=== PATIENT | female | born 1990 | race Caucasian/White ===

== ENCOUNTER 2018-05-07 12:27 | Outpatient (CLI) | payer MEDICAID ==
[2018-05-07 14:13] LABS: ADD UMIC YES; UR ASCORBIC ACID 40 mg/dL (NEGATIVE); UR BACTERIA FEW /HPF (NONE SEEN); UR BILIRUBIN (Dip) NEGATIVE (NEGATIVE); UR BLOOD (Dip) NEGATIVE (NEGATIVE); UR CLARITY SLIGHTLY CLOUDY (CLEAR); UR COLOR YELLOW (YELLOW); UR GLUCOSE (Dip) 1+ mg/dL (NEGATIVE); UR KETONES (Dip) TRACE mg/dL (NEGATIVE); UR LEUKOCYTE ESTERASE (Dip) 2+ Leu/ul (NEGATIVE); UR MUCUS FEW /HPF (NONE SEEN); UR NITRITE (Dip) NEGATIVE (NEGATIVE); UR RBC 4 /HPF (0-5); UR SPECIFIC GRAVITY (Dip) 1.025 (1.003-1.030); UR SQUAMOUS EPITHELIAL CELL FEW /HPF (FEW); UR TOTAL PROTEIN (Dip) 1+ mg/dl (NEGATIVE); UR UROBILINOGEN (Dip) NEGATIVE (NEGATIVE); UR WBC 51 /HPF (0-5)
== END 2018-05-07 16:35 | disposition home or self-care (01) ==
LOC: OBT 12:27 → L-D 12:27 → OBT 16:35
DX: O36.8120 Decreased fetal movements, second trimester, not applicable or unspecified (principal); Z3A.25 25 weeks gestation of pregnancy
CPT/HCPCS: 76817; 81001; 82731

== ENCOUNTER 2018-05-07 16:33 | Emergency (ER) | payer MEDICAID ==
[2018-05-07] MEDS: DEXAMETHASONE 4 MG TAB PO (18:07)
[2018-05-07] MEDS: ALBUTEROL 0.083% (NEB) 2.5 MG/3 ML AMP HHN (18:42)
== END 2018-05-07 19:46 | disposition home or self-care (01) ==
LOC: FTE 16:33
DX: J06.9 Acute upper respiratory infection, unspecified (principal)
CPT/HCPCS: 94664; 99283-25

== ENCOUNTER 2018-07-20 08:26 | Emergency (ER) | payer MEDICAID | END 2018-07-20 09:03 | disposition home or self-care (01) | LOC: FTE 08:26 | DX: L30.9 Dermatitis, unspecified (principal) | CPT/HCPCS: 99283; Z7502 ==

== ENCOUNTER 2018-08-15 05:52 | Inpatient (IN) | payer MEDICAID ==
[2018-08-15] MEDS ORDERED: OXYTOCIN 30 UNITS/LR 500 ML IV ×2 (06:00→19:00)
[2018-08-15] MEDS ORDERED: MISOPROSTOL 200 MCG TAB PR ×2 (06:00→19:00)
[2018-08-15] MEDS ORDERED: CARBOPROST 250 MCG INJ IM ×2 (06:00→19:00)
[2018-08-15] MEDS ORDERED: CEFAZOLIN 2 GM/50 ML (PMX) 50 ML IVPB (06:00)
[2018-08-15] MEDS ORDERED: METHYLERGONOVINE 0.2 MG INJ IM ×2 (06:00→19:00)
[2018-08-15] MEDS: LACTATED RINGER'S 1,000 ML IV ×3 (06:41→14:48)
[2018-08-15 06:55] LABS: ADD MAN DIFF? NO; BASOPHILS % 0.4 % (0.0-2.0); EOSINOPHILS # 0.1 10^3/ul (0.0-0.5); EOSINOPHILS % 0.9 % (0.0-7.0); HEMATOCRIT 37.6 % (37.0-47.0); HEMOGLOBIN 12.4 g/dl (12.0-16.0); LYMPHOCYTES # 2.4 10^3/ul (0.8-2.9); MEAN CORPUSCULAR VOLUME 87.9 fl (82.0-101.0); MEAN PLATELET VOLUME 10.8 fl (7.4-10.4); MONOCYTE # 0.9 10^3/ul (0.3-0.9); MONOCYTES % 9.4 % (0.0-11.0); NEUTROPHIL # 6.2 10^3/ul (1.6-7.5); NEUTROPHILS % 63.7 % (39.0-77.0); PLATELET COUNT 256 10^3/UL (140-415); RED BLOOD COUNT 4.28 10^6/ul (4.20-5.40); RED CELL DISTRIBUTION WIDTH 15.1 % (11.5-14.5)
[2018-08-15 06:55] LABS: WHITE BLOOD COUNT 9.7 10^3/ul (4.8-10.8)
[2018-08-15 07:15] LABS: INR 0.91; PARTIAL THROMBOPLASTIN TIME 25.8 Sec (23.0-35.0); PROTIME 12.4 Sec (11.9-14.9)
[2018-08-15 07:45] LABS: HEPATITIS B SURFACE ANTIGEN NEGATIVE (NEGATIVE)
[2018-08-15] MEDS ORDERED: PHENYLephrine (100 MCG/ML) 10ML SYG (07:48)
[2018-08-15] MEDS ORDERED: morphine SULFATE/PF (10 MG/10 ML) INJ (07:48)
[2018-08-15] MEDS ORDERED: ONDANSETRON 4 MG INJ (13:00)
[2018-08-15] MEDS ORDERED: TRIMETHOBENZAMIDE 100 MG/ML VIAL IM ×2 (13:30)
[2018-08-15] MEDS ORDERED: ALBUTEROL 0.083% (NEB) 2.5 MG/3 ML AMP HHN (13:30)
[2018-08-15] MEDS ORDERED: MIDAZOLAM 1 MG/ML 2 ML INJ IV (13:30)
[2018-08-15] MEDS ORDERED: IPRATROPIUM (NEB) 0.5 MG/2.5 ML AMP HHN (13:30)
[2018-08-15] MEDS ORDERED: FENTAnyl 50 MCG/ML VIAL IV ×3 (13:30)
[2018-08-15] MEDS ORDERED: MEPERIDINE 25 MG INJ IV (13:30)
[2018-08-15] MEDS ORDERED: morphine 2 MG INJ IV (13:30)
[2018-08-15] MEDS ORDERED: EPHEDrine 25 MG/5 ML SYG IV (13:30)
[2018-08-15] MEDS ORDERED: DIPHENHYDRAMINE 50 MG INJ IV ×2 (13:30)
[2018-08-15] MEDS ORDERED: LABETALOL HCL 20MG INJ IV (13:30)
[2018-08-15] MEDS ORDERED: NALOXONE (0.4 MG/ML) INJ IV (13:30)
[2018-08-15] MEDS ORDERED: NALBUPHINE HCL (10 MG/1 ML) INJ IV (13:30)
[2018-08-15] MEDS ORDERED: ONDANSETRON 4 MG INJ IV ×2 (13:30)
[2018-08-15] MEDS ORDERED: OXYCODONE/ACETAMINOPHEN (5/325) TAB PO ×2 (13:30)
[2018-08-15] MEDS ORDERED: HYDROmorphONE 1 MG/5 ML IV SYRINGE IV ×3 (13:30)
[2018-08-15] MEDS ORDERED: hydrALAzine 20 MG INJ IV (13:30)
[2018-08-15] MEDS: KETOROLAC 30 MG INJ IV (15:33)
[2018-08-15] MEDS: CEFTRIAXONE 1 GM/50 ML (PMX) 50 ML IVPB (16:13)
[2018-08-15] MEDS: SOD CHLORIDE 0.9% 1,000 ML IV (16:34)
[2018-08-15 17:25] LABS: RAPID PLASMA REAGIN NONREACTIVE (NR)
[2018-08-15] MEDS: DEXTROSE 5%-LR 1,000 ML IV (18:44)
[2018-08-15] MEDS ORDERED: METHYLERGONOVINE 0.2 MG TAB PO (19:00)
[2018-08-15] MEDS ORDERED: LANOLIN HPA 1 PKT TOP (19:00)
[2018-08-15] MEDS: OXYTOCIN 30 UNITS/LR 500 ML IV (21:17)
[2018-08-15] MEDS: SENNA/DOCUSATE NA (8.6MG/50MG) TAB PO (21:22)
[2018-08-15] MEDS: IBUPROFEN 800 MG TAB PO (21:59)
[2018-08-16] MEDS: SOD CHLORIDE 0.9% 1,000 ML IV ×3 (01:32→16:30)
[2018-08-16] MEDS: DEXTROSE 5%-LR 1,000 ML IV ×3 (02:44→18:44)
[2018-08-16] MEDS: IBUPROFEN 800 MG TAB PO ×3 (06:25→21:49)
[2018-08-16] MEDS: LACTATED RINGER'S 1,000 ML IV ×3 (06:29→22:00)
[2018-08-16 08:02] LABS: ADD MAN DIFF? NO
[2018-08-16 08:08] LABS: WHITE BLOOD COUNT 13.4 10^3/ul (4.8-10.8)
[2018-08-16 08:08] LABS: BASOPHILS % 0.2 % (0.0-2.0); EOSINOPHILS % 0.1 % (0.0-7.0); HEMATOCRIT 24.5 % (37.0-47.0); HEMOGLOBIN 7.9 g/dl (12.0-16.0); LYMPHOCYTES # 1.7 10^3/ul (0.8-2.9); LYMPHOCYTES % 12.8 % (15.0-51.0); MEAN CORPUSCULAR HEMOGLOBIN 28.8 pg (29.0-33.0); MEAN CORPUSCULAR HGB CONC 32.2 g/dl (32.0-37.0); MEAN CORPUSCULAR VOLUME 89.4 fl (82.0-101.0); MONOCYTE # 1.2 10^3/ul (0.3-0.9); MONOCYTES % 9.1 % (0.0-11.0); NEUTROPHIL # 10.3 10^3/ul (1.6-7.5); NEUTROPHILS % 77.1 % (39.0-77.0); PLATELET COUNT 207 10^3/UL (140-415); RED BLOOD COUNT 2.74 10^6/ul (4.20-5.40); RED CELL DISTRIBUTION WIDTH 15.3 % (11.5-14.5)
[2018-08-16] MEDS: SENNA/DOCUSATE NA (8.6MG/50MG) TAB PO ×2 (08:56→21:49)
[2018-08-16] MEDS: DIPHTH/TET/ACEL PERTUSS (ADULT) 0.5 ML VIAL IM* (11:00)
[2018-08-16] MEDS: FERROUS SULFATE (EC) 325 MG TAB PO ×2 (13:39→21:49)
[2018-08-16] MEDS: HYDROCODONE/APAP (5/325) TAB GTB ×2 (13:40→21:50)
[2018-08-16] MEDS: CEFTRIAXONE 2 GM/50 ML (PMX) 50 ML IVPB (16:53)
[2018-08-17] MEDS: SOD CHLORIDE 0.9% 1,000 ML IV (00:30)
[2018-08-17] MEDS: DEXTROSE 5%-LR 1,000 ML IV ×3 (02:44→18:44)
[2018-08-17] MEDS: IBUPROFEN 800 MG TAB PO ×3 (05:29→21:38)
[2018-08-17] MEDS: HYDROCODONE/APAP (5/325) TAB GTB ×3 (05:29→21:38)
[2018-08-17] MEDS: LACTATED RINGER'S 1,000 ML IV (06:00)
[2018-08-17] MEDS: SENNA/DOCUSATE NA (8.6MG/50MG) TAB PO ×2 (08:45→20:32)
[2018-08-17] MEDS: FERROUS SULFATE (EC) 325 MG TAB PO ×2 (08:45→20:32)
[2018-08-17] MEDS: NITROFURANTOIN (SR) 100 MG CAP PO ×2 (08:45→20:32)
[2018-08-18] MEDS: MAGNESIUM HYDROXIDE 30ML CUP PO (00:50)
[2018-08-18] MEDS: HYDROCODONE/APAP (5/325) TAB GTB ×2 (05:47→14:38)
[2018-08-18] MEDS: IBUPROFEN 800 MG TAB PO ×2 (05:47→14:38)
[2018-08-18] MEDS: MEASLES,MUMPS,RUBELLA VACCINE INJ SC* (09:00)
[2018-08-18] MEDS ORDERED: DIPHTH/TET/ACEL PERTUSS (ADULT) 0.5 ML VIAL IM* (09:00)
[2018-08-18] MEDS: SENNA/DOCUSATE NA (8.6MG/50MG) TAB PO (09:01)
[2018-08-18] MEDS: FERROUS SULFATE (EC) 325 MG TAB PO (09:01)
[2018-08-18] MEDS: NITROFURANTOIN (SR) 100 MG CAP PO (09:01)
[2018-08-18] MEDS: HYDROCODONE/APAP (5/325) TAB NGT ×2 (12:18→17:16)
== END 2018-08-18 19:05 | disposition home or self-care (01) | DRG 788 ==
LOC: L-D 05:52 → PP1 18:13
PROVIDERS: Obstetrics & Gynecology
PROC: 10D00Z1 Extraction of Products of Conception, Low, Open Approach (ICD-10-PCS; principal; 2018-08-15 07:30)
DX: O36.63X0 Maternal care for excessive fetal growth, third trimester, not applicable or unspecified (principal); O99.214 Obesity complicating childbirth; E66.9 Obesity, unspecified; O69.81X0 Labor and delivery complicated by cord around neck, without compression, not applicable or unspecified; Z3A.39 39 weeks gestation of pregnancy; Z37.0 Single live birth
CPT/HCPCS: 85025; 85610; 85730; 86592; 86850; 86900; 86901; 87340; 99464